=== PATIENT | female | born 1990 | race Caucasian/White ===

== ENCOUNTER 2018-04-08 14:54 | Emergency (ER) | payer MEDICAID, BC ==
[2018-04-08 16:08] LABS: ADD MAN DIFF? NO
[2018-04-08 16:09] LABS: WHITE BLOOD COUNT 11.4 10^3/ul (4.8-10.8)
[2018-04-08 16:09] LABS: BASOPHILS % 0.2 % (0.0-2.0); EOSINOPHILS % 0.2 % (0.0-7.0); HEMATOCRIT 39.7 % (37.0-47.0); HEMOGLOBIN 13.4 g/dl (12.0-16.0); LYMPHOCYTES # 1.1 10^3/ul (0.8-2.9); LYMPHOCYTES % 9.6 % (15.0-51.0); MEAN CORPUSCULAR HEMOGLOBIN 30.5 pg (29.0-33.0); MEAN CORPUSCULAR HGB CONC 33.8 g/dl (32.0-37.0); MEAN CORPUSCULAR VOLUME 90.4 fl (82.0-101.0); MEAN PLATELET VOLUME 10.6 fl (7.4-10.4); MONOCYTE # 0.5 10^3/ul (0.3-0.9); MONOCYTES % 4.7 % (0.0-11.0); NEUTROPHIL # 9.7 10^3/ul (1.6-7.5); NEUTROPHILS % 84.9 % (39.0-77.0); PLATELET COUNT 212 10^3/UL (140-415); RED BLOOD COUNT 4.39 10^6/ul (4.20-5.40); RED CELL DISTRIBUTION WIDTH 12.2 % (11.5-14.5)
[2018-04-08] MEDS: SOD CHLORIDE 0.9% 500 ML IV (16:10)
[2018-04-08] MEDS: LEVETIRACETAM 1000 MG (PMX) 100 ML IVPB (16:10)
[2018-04-08 16:38] LABS: ANION GAP 15 (8-16); BLOOD UREA NITROGEN 14 mg/dl (7-20); CARBON DIOXIDE 25 mmol/L (21-31); CHLORIDE 104 mmol/L (97-110); CREATININE 0.73 mg/dl (0.44-1.00); GLUCOSE 95 mg/dl (70-220); POTASSIUM 3.9 mmol/L (3.5-5.1); SODIUM 140 mmol/L (135-144)
== END 2018-04-08 17:11 | disposition home or self-care (01) ==
LOC: FTE 14:54
DX: G40.909 Epilepsy, unspecified, not intractable, without status epilepticus (principal); F17.210 Nicotine dependence, cigarettes, uncomplicated; Z87.820 Personal history of traumatic brain injury; Z91.14 Patient's other noncompliance with medication regimen
CPT/HCPCS: 36415; 70450; 80048; 85025; 96374; 99285-25